=== PATIENT | female | born 1995 | race Caucasian/White ===

== ENCOUNTER 2023-01-24 02:50 | Emergency (ER) | payer SELFPAY ==
[~2023-01-24] VITALS: Ht 165.1 cm; Wt 147.4 kg
[2023-01-24 03:13] LABS: BILIRUBIN, URINE NEGATIVE (negative); BLOOD/HGB, URINE NEGATIVE (Negative); KETONE, URINE NEGATIVE (Negative); LEUK ESTERASE, URINE NEGATIVE (negative); NITRITE, URINE NEGATIVE (negative); PH, URINE 5.5 (5-7)
[2023-01-24 03:34] LABS: EOSINOPHILS 2.3 % (0-6); HEMATOCRIT 40.8 % (35.0-50.0); HEMOGLOBIN 13.6 g/dL (12.0-18.0); MCH 30.3 (27-36); MCHC 33.2 g/dl (30-36); MCV 91.4 fl (81-99); MONOCYTES 5.5 % (0-12); NEUTROPHILS 49.2 % (39-80); PLATELET COUNT 315 K/uL (140-440); RBC 4.47 M/ul (4.3-5.7); RDW 13.5 (10.5-15.0)
[2023-01-24 03:51] LABS: ALBUMIN 3.3 g/dL (3.4-5.0); ALBUMIN/GLOBULIN RATIO 0.8 (1.1-2.4); ANION GAP 12.6 (7-21); BILIRUBIN, TOTAL 0.2 ng/dL (0.2-1.0); BUN/CREATININE RATIO 12.96 (6.0-28.6); CALCIUM 8.5 mg/dL (8.5-10.1); CREATININE, SERUM 1.08 mg/dL (0.55-1.02); POTASSIUM 3.6 mmol/L (3.5-5.1); PROTEIN, TOTAL 7.4 g/dL (6.4-8.2)
[2023-01-24 03:59] LABS: SOURCE, WET MOUNT NOT STATED
[2023-01-24 04:00] LABS: EPITHELIAL CELLS, WET MOUNT 1+ (NEGATIVE); WBC, WET MOUNT 1+ (NEGATIVE)
[2023-01-24 04:01] LABS: BACTERIA, WET MOUNT 1+ (NEGATIVE); RBC, WET MOUNT NEGATIVE (NEGATIVE)
[2023-01-24 04:04] LABS: CLUE CELLS, WET MOUNT POSITIVE (NEGATIVE); TRICHOMONAS, WET MOUNT NEGATIVE (NEGATIVE); YEAST, WET MOUNT NEGATIVE (NEGATIVE)
[2023-01-24 04:14] LABS: ABO A; RH POSITIVE
[2023-01-24 05:25] LABS: N. GONORRRHOEAE BY PCR NOT DETECTED (NOT DETECT)
[2023-01-24] MEDS ORDERED: METRONIDAZOLE500 MG PO (05:30)
[2023-01-24 05:37] VITALS: BP 119/75
== END 2023-01-24 05:45 | disposition home or self-care (01) ==
LOC: ED 02:50
PROVIDERS: Internal Medicine
DX: N76.0 Acute vaginitis (principal); B96.89 Other specified bacterial agents as the cause of diseases classified elsewhere
CPT/HCPCS: 36415; 80053; 81003; 84703; 85025; 86900; 86901; 87210; 99284; J7121